=== PATIENT | male | born 1985 | race Caucasian/White ===

== ENCOUNTER 2017-02-08 23:22 | Emergency (ER) | payer BC ==
[~2017-02-08] VITALS: Ht 182.9 cm; Wt 90.7 kg
[2017-02-09 00:11] LABS: Urine Bilirubin Negative (Negative); Urine Blood Negative /uL (Negative); Urine Color Straw (Yellow); Urine Glucose Normal (Normal); Urine Ketone Negative (Negative); Urine Mucus FEW (None Seen); Urine Nitrite Negative (Negative); Urine RBC <1 /hpf (0 - 3); Urine Urobilinogen Normal (Negative); Urine pH 6.5 (5.0-8.0)
[2017-02-09 00:13] LABS: Basophils # (auto) 0 uL; Basophils % (auto) 0.5 % (0.0-2.0); Eosinophils # (auto) 0.1 uL; Eosinophils % (auto) 1.5 % (0.0-7.0); Hemoglobin 14.8 g/dL (13.5-17.5); Lymphocytes # (auto) 2.6 uL; Lymphocytes % (auto) 31.6 % (10.0-50.0); Mean Corpuscular Hemoglobin 29.5 pg (28.0-32.0); Mean Corpuscular Hgb Conc. 33.7 g/dL (32.0-36.0); Mean Corpuscular Volume 87.8 fL (80.0-100.0); Mean Platelet Volume 8.5 fL (6.9-10.8); Monocytes # (auto) 0.4 uL; Neutrophils # (auto) 5.1 uL; Neutrophils % (auto) 61.4 % (37.0-80.0); Platelet Count (auto) 251 10^3/uL (140-450); Red Cell Distribution Width 13.2 % (11.8-14.3); White Blood Cell 8.3 10^3/uL (4.4-10.8)
[2017-02-09 00:24] LABS: Lactic Acid w/Reflex 2.4 mmol/L (0.4-2.0)
[2017-02-09 00:26] LABS: Albumin 4.1 g/dL (3.4-5.0); Alkaline Phosphatase 82 U/L (45-117); Anion Gap 9 (5-15); Aspartate Aminotransferase 34 U/L (15-37); BUN/Creatinine Ratio 12.6; Bilirubin, Total 0.6 mg/dL (0.2-1.0); Blood Urea Nitrogen 15 mg/dL (7-18); Calcium 9.1 mg/dL (8.5-10.1); Carbon Dioxide 27 mmol/L (21-32); Chloride 106 mmol/L (98-107); GFR African American 92 mL/min; GFR Non-African American 76 mL/min; Glucose 140 mg/dL (74-106); Magnesium 2.4 mg/dL (1.6-2.6); Potassium 3.6 mmol/L (3.5-5.1); Sodium 142 mmol/L (136-145); Total Protein 7.8 g/dL (6.4-8.2)
[2017-02-09 00:29] LABS: B-Type Natriuretic Peptide 11.74 pg/mL (0-100)
[2017-02-09 00:32] LABS: REFLEX LACTIC ACID YES OR NO YES
[2017-02-09 00:34] LABS: Temperature: 22.2 C (20.0-25.0)
[2017-02-09] MEDS ORDERED: SODIUM CHLORIDE 0.9% 1,000 ML IV ONE (04:15)
[2017-02-09 06:00] VITALS: BP 135/86
== END 2017-02-09 06:24 | disposition home or self-care (01) ==
LOC: ER 23:25
DX: F41.1 Generalized anxiety disorder (principal)
CPT/HCPCS: 36415; 71020; 80053; 80307; 81001; 83605; 83735; 83880; 84443; 84484; 85025; 87040; 93005; 94761; 96360; 99285; J7030